=== PATIENT | male | born 1955 | race Caucasian/White ===

== ENCOUNTER 2022-11-19 12:30 | Emergency (ER) | payer OTHER ==
[2022-11-19] MEDS ORDERED: methylPREDNISolone Sod Succ/PF 125 MG/2 ML VIAL ONE (13:05)
[2022-11-19] MEDS ORDERED: Albuterol 200 PUFF INH ONE (13:07)
[2022-11-19 13:29] LABS: Hemoglobin 14.1 g/dL (14.0-18.0); Mean Corpuscular HGB CONC 33.1 g/dL (32.0-36.0); Mean Platelet Volume 8.4 fL (7.4-10.4); Platelet Count 222 10x3/uL (130-400); RBC Distribution Width 11.7 % (11.5-14.5); Red Blood Cell (RBC) Count 4.14 mill/uL (4.70-6.10); White Blood Cell (WBC) Count 15.6 10x3/uL (4.8-10.8)
[2022-11-19 13:42] LABS: Band 9 % (5-11); Lymphocytes 9 % (21-51); MDiff Complete? YES; Macrocytosis SLIGHT = 6-15 cells (100X) (0-5/hpf); Monocytes 6 % (0-10); Neutrophil 73 % (42-75); Platelet Morphology Comment Appears Adequate; Polychromasia SLIGHT = 2-3 cells (100X) (0-2/hpf); Reactive Lymphocytes 2 % (0-10)
[2022-11-19 13:50] LABS: ALT (SGPT) 9 U/L (8-55); AST (SGOT) 9 U/L (5-34); Albumin 3.8 g/dL (3.4-4.8); Alkaline Phosphatase 76 U/L (40-110); Anion Gap 14 mmol/L (10-20); BUN (Urea Nitrogen) 13 mg/dL (8.4-25.7); Bilirubin, Total 0.4 mg/dL (0.2-1.2); Calc. Creatinine Clearance 0 mL/min (70-130); Calcium 9.4 mg/dL (7.8-10.44); Carbon Dioxide 26 mmol/L (23-31); Chloride 104 mmol/L (98-107); Estimated GFR 96; Globulin 3.3 g/dL (2.4-3.5); Glucose 118 mg/dL (80-115); Potassium 3.7 mmol/L (3.5-5.1); Protein, Total 7.1 g/dL (5.8-8.1); Sodium 140 mmol/L (136-145)
[2022-11-19] MEDS ORDERED: cefTRIAXone (ROCEPHIN) 2 GM VIAL ONE (13:59)
[2022-11-19] MEDS ORDERED: Azithromycin 500 MG VIAL ONE (14:24)
[2022-11-19] MEDS ORDERED: Acetaminophen 325 MG TAB ONE (14:50)
== END 2022-11-19 17:00 | disposition home or self-care (01) ==
LOC: ERS 12:30
DX: J44.1 Chronic obstructive pulmonary disease with (acute) exacerbation (principal); D72.829 Elevated white blood cell count, unspecified; I10 Essential (primary) hypertension; Z87.891 Personal history of nicotine dependence; Z79.01 Long term (current) use of anticoagulants
CPT/HCPCS: 36415; 71045; 80053; 83605; 84484; 85025; 87040; 93005; 96365; 96367; 96375; J0456; J0696; J2930

== ENCOUNTER 2022-11-22 11:26 | Emergency (ER) | payer OTHER ==
[2022-11-22 13:04] LABS: Bacteria/HPF None Seen HPF (None Seen); Bilirubin Negative (Negative); Blood, Urine Trace (Negative); Clarity Clear (Clear); Glucose, Urine (Dipstick) Normal (Negative); Ketone, Urine Negative (Negative); Leukocyte Negative Leu/uL (Negative); Nitrite Negative (Negative); Protein, Urine (Dipstick) 20 mg/dL (Neg-Trace); Specific Gravity, Urine 1.036 (1.002-1.036); Squamous Epithelial 0-3 HPF (0-3); Urobilinogen Normal mg/dL (Less than 2); WBC/HPF 0-3 HPF (0-3)
[2022-11-22 13:33] LABS: #Lymphocytes 1.3 thou/uL (1.20-3.40); #Monocytes 0.4 thou/uL (0.11-0.59); #Neutrophils 9.1 thou/uL (1.40-6.50); %Basophils 0.1 % (0.0-1.0); %Eosinophils 0.1 % (0.0-10.0); %Lymphocytes 11.7 % (21.0-51.0); %Neutrophils 84.1 % (42.0-75.0); Hemoglobin 13.9 g/dL (14.0-18.0); Mean Corpuscular HGB CONC 31.7 g/dL (32.0-36.0); Mean Platelet Volume 8.2 fL (7.4-10.4); Platelet Count 274 10x3/uL (130-400); RBC Distribution Width 11.8 % (11.5-14.5); Red Blood Cell (RBC) Count 4.22 mill/uL (4.70-6.10); White Blood Cell (WBC) Count 10.8 10x3/uL (4.8-10.8)
== END 2022-11-22 14:38 | disposition home or self-care (01) ==
LOC: ERS 11:26
DX: R31.9 Hematuria, unspecified (principal); I10 Essential (primary) hypertension; J44.9 Chronic obstructive pulmonary disease, unspecified; I25.10 Atherosclerotic heart disease of native coronary artery without angina pectoris; Z87.891 Personal history of nicotine dependence; Z79.01 Long term (current) use of anticoagulants; Z79.899 Other long term (current) drug therapy
CPT/HCPCS: 36415; 81003; 81015; 85025; 99283

== ENCOUNTER 2022-11-27 03:57 | Inpatient (IN) | payer OTHER ==
[2022-11-27] MEDS ORDERED: Ipratropium/Albuterol 3 ML NEB ONE ×2 (04:16→05:40)
[2022-11-27] MEDS ORDERED: Dexamethasone 10 MG/ML VIAL ONE (04:21)
[2022-11-27] MEDS ORDERED: Magnesium 2 GM/50 ML BAG (IN WATER) ONE (04:22)
[2022-11-27 05:04] LABS: #Eosinphils 0.3 thou/uL (0.0-0.7); #Lymphocytes 2.3 thou/uL (1.20-3.40); #Monocytes 0.8 thou/uL (0.11-0.59); #Neutrophils 12.1 thou/uL (1.40-6.50); %Basophils 0.1 % (0.0-1.0); %Eosinophils 1.7 % (0.0-10.0); %Neutrophils 78.2 % (42.0-75.0); Hemoglobin 12.6 g/dL (14.0-18.0); Mean Corpuscular HGB CONC 33.8 g/dL (32.0-36.0); Mean Corpuscular Hemoglobin 35.1 pg (27.0-31.0); Mean Platelet Volume 7.6 fL (7.4-10.4); Platelet Count 254 10x3/uL (130-400); RBC Distribution Width 12.2 % (11.5-14.5); White Blood Cell (WBC) Count 15.4 10x3/uL (4.8-10.8)
[2022-11-27 05:30] LABS: ALT (SGPT) 19 U/L (8-55); AST (SGOT) 11 U/L (5-34); Albumin 3.2 g/dL (3.4-4.8); Alkaline Phosphatase 56 U/L (40-110); Anion Gap 10 mmol/L (10-20); BUN (Urea Nitrogen) 12 mg/dL (8.4-25.7); Bilirubin, Total 0.3 mg/dL (0.2-1.2); CK (CPK) 34 U/L (30-200); Calc. Creatinine Clearance 0 mL/min (70-130); Calcium 8.1 mg/dL (7.8-10.44); Carbon Dioxide 32 mmol/L (23-31); Chloride 103 mmol/L (98-107); Estimated GFR 98; Globulin 1.8 g/dL (2.4-3.5); Glucose 88 mg/dL (80-115); Lipase 13 U/L (8-78); Potassium 3.8 mmol/L (3.5-5.1); Sodium 141 mmol/L (136-145)
[2022-11-27] MEDS ORDERED: Acetaminophen 650 MG Suppository PR PRN (06:25)
[2022-11-27] MEDS ORDERED: Acetaminophen 325 MG TAB PO PRN (06:25)
[2022-11-27] MEDS ORDERED: Ipratropium Bromide 2.5 ml Neb NEB PRN ×2 (06:25→07:11)
[2022-11-27 07:55] LABS: Bilirubin Negative (Negative); Blood, Urine Negative (Negative); Clarity Clear (Clear); Glucose, Urine (Dipstick) Normal (Negative); Ketone, Urine Negative (Negative); Leukocyte Negative Leu/uL (Negative); Nitrite Negative (Negative); Protein, Urine (Dipstick) Negative (Neg-Trace); Specific Gravity, Urine 1.014 (1.002-1.036); Urobilinogen Normal mg/dL (Less than 2)
[2022-11-27 09:45] VITALS: BMI 29.0
[2022-11-27] MEDS: Ipratropium/Albuterol 3 ML NEB NEB SCH ×5 (10:47→22:26)
[2022-11-27] MEDS: Amiodarone 200 MG TAB PO SCH (20:51)
[2022-11-27] MEDS: Apixaban 5 MG TAB PO SCH (20:51)
[2022-11-27] MEDS: Carvedilol 25 MG TAB PO SCH (20:52)
[2022-11-28] MEDS: Ipratropium/Albuterol 3 ML NEB NEB SCH ×6 (02:16→22:55)
[2022-11-28 07:32] LABS: Hemoglobin 12.9 g/dL (14.0-18.0); Mean Corpuscular HGB CONC 34.4 g/dL (32.0-36.0); Mean Corpuscular Hemoglobin 35.4 pg (27.0-31.0); Platelet Count 248 10x3/uL (130-400); RBC Distribution Width 12.3 % (11.5-14.5); Red Blood Cell (RBC) Count 3.66 mill/uL (4.70-6.10); White Blood Cell (WBC) Count 15.8 10x3/uL (4.8-10.8)
[2022-11-28] MEDS ORDERED: cefTRIAXone\\ROCEPHIN 1 GM in Sodium Chloride 0.9% 100 ML IVPB SCH (08:00)
[2022-11-28] MEDS ORDERED: predniSONE 20 MG TAB PO SCH (08:00)
[2022-11-28] MEDS: Apixaban 5 MG TAB PO SCH ×2 (08:17→20:00)
[2022-11-28] MEDS: Carvedilol 25 MG TAB PO SCH ×2 (08:17→20:10)
[2022-11-28] MEDS: Amiodarone 200 MG TAB PO SCH ×2 (08:17→19:59)
[2022-11-28 12:42] LABS: Band 2 % (5-11); Large Platelets SLIGHT; Lymphocytes 10 % (21-51); MDiff Complete? YES; Monocytes 7 % (0-10); Neutrophil 81 % (42-75); Ovalocytes SLIGHT = 2-5 cells (100X) (0-1/hpf); Platelet Morphology Comment Appears Adequate; Polychromasia SLIGHT = 2-3 cells (100X) (0-2/hpf)
[2022-11-28] MEDS ORDERED: Acetaminophen 650 MG Suppository PR PRN (19:34)
[2022-11-28] MEDS ORDERED: Ipratropium Bromide 2.5 ml Neb NEB PRN (19:35)
[2022-11-28] MEDS: Acetaminophen 325 MG TAB PO PRN (20:04)
[2022-11-29] MEDS: Ipratropium/Albuterol 3 ML NEB NEB SCH ×5 (03:15→18:59)
[2022-11-29 07:42] LABS: Band 3 % (5-11); Eosinophils 2 % (0-10); Hemoglobin 13.4 g/dL (14.0-18.0); Lymphocytes 16 % (21-51); MDiff Complete? YES; Macrocytosis SLIGHT = 6-15 cells (100X) (0-5/hpf); Mean Corpuscular HGB CONC 32.8 g/dL (32.0-36.0); Mean Corpuscular Hemoglobin 33.6 pg (27.0-31.0); Mean Platelet Volume 8.1 fL (7.4-10.4); Monocytes 4 % (0-10); Neutrophil 75 % (42-75); Platelet Count 262 10x3/uL (130-400); Platelet Morphology Comment Appears Adequate; RBC Distribution Width 12.7 % (11.5-14.5); Red Blood Cell (RBC) Count 3.98 mill/uL (4.70-6.10); Stomatocytes SLIGHT = 2-5 cells (100X) (0-1/hpf); White Blood Cell (WBC) Count 16.4 10x3/uL (4.8-10.8)
[2022-11-29] MEDS ORDERED: cefTRIAXone\\ROCEPHIN 1 GM in Sodium Chloride 0.9% 100 ML IVPB SCH (08:00)
[2022-11-29] MEDS: Carvedilol 25 MG TAB PO SCH ×2 (08:42→20:06)
[2022-11-29] MEDS: predniSONE 20 MG TAB PO SCH (08:42)
[2022-11-29] MEDS: Apixaban 5 MG TAB PO SCH ×2 (08:43→20:06)
[2022-11-29] MEDS: Amiodarone 200 MG TAB PO SCH ×2 (08:43→20:06)
[2022-11-29] MEDS: Lisinopril 10 MG TAB PO SCH (08:45)
[2022-11-29] MEDS ORDERED: Ipratropium Bromide 2.5 ml Neb NEB PRN (10:29)
[2022-11-29] MEDS: Acetaminophen 325 MG TAB PO PRN (20:34)
[2022-11-30] MEDS: Ipratropium/Albuterol 3 ML NEB NEB SCH ×4 (01:27→18:22)
[2022-11-30 06:18] LABS: #Eosinphils 0.2 thou/uL (0.0-0.7); #Lymphocytes 3.2 thou/uL (1.20-3.40); #Monocytes 1.1 thou/uL (0.11-0.59); #Neutrophils 10.7 thou/uL (1.40-6.50); %Basophils 0.3 % (0.0-1.0); %Eosinophils 1.1 % (0.0-10.0); %Monocytes 7.5 % (0.0-10.0); %Neutrophils 70.1 % (42.0-75.0); Hemoglobin 13.4 g/dL (14.0-18.0); Mean Corpuscular HGB CONC 31.9 g/dL (32.0-36.0); Mean Corpuscular Hemoglobin 33.2 pg (27.0-31.0); Platelet Count 241 10x3/uL (130-400); RBC Distribution Width 12.6 % (11.5-14.5); Red Blood Cell (RBC) Count 4.05 mill/uL (4.70-6.10); White Blood Cell (WBC) Count 15.2 10x3/uL (4.8-10.8)
[2022-11-30 06:35] LABS: Anion Gap 12 mmol/L (10-20); BUN (Urea Nitrogen) 19 mg/dL (8.4-25.7); Calc. Creatinine Clearance 116 mL/min (70-130); Calcium 8.8 mg/dL (7.8-10.44); Carbon Dioxide 33 mmol/L (23-31); Chloride 98 mmol/L (98-107); Estimated GFR 98; Glucose 101 mg/dL (80-115); Potassium 3.7 mmol/L (3.5-5.1); Sodium 139 mmol/L (136-145)
[2022-11-30] MEDS: predniSONE 20 MG TAB PO SCH (08:15)
[2022-11-30] MEDS: Carvedilol 25 MG TAB PO SCH ×2 (08:15→21:16)
[2022-11-30] MEDS: Lisinopril 10 MG TAB PO SCH (08:15)
[2022-11-30] MEDS: Apixaban 5 MG TAB PO SCH ×2 (08:15→21:16)
[2022-11-30] MEDS: Amiodarone 200 MG TAB PO SCH (08:15)
[2022-11-30] MEDS: Amoxicillin/Potassium Clav 875 MG TAB PO SCH ×2 (08:15→21:16)
[2022-11-30] MEDS ORDERED: Lisinopril 10 MG TAB PO SCH (09:32)
[2022-11-30 09:49] LABS: SARS-CoV-2 NAA Rapid Test Not Detected (NotDetected)
[2022-11-30] MEDS ORDERED: Dextromethorphan 30 MG/5 ML (89 ML BOTTLE) PO PRN (18:39)
[2022-11-30] MEDS: Budesonide 0.5 MG/2 ML NEB NEB SCH (18:40)
[2022-11-30] MEDS ORDERED: Furosemide 20 MG/2 ML VIAL SLOW IVP SCH (18:45)
[2022-11-30] MEDS: Nicotine 21 MG PATCH TD SCH (21:15)
[2022-12-01] MEDS: Ipratropium/Albuterol 3 ML NEB NEB SCH ×6 (00:22→23:00)
[2022-12-01] MEDS: Budesonide 0.5 MG/2 ML NEB NEB SCH ×3 (06:42→18:44)
[2022-12-01 07:10] LABS: #Basophils 0.1 thou/uL (0.0-0.2); #Eosinphils 0.2 thou/uL (0.0-0.7); #Lymphocytes 3.5 thou/uL (1.20-3.40); #Monocytes 1.1 thou/uL (0.11-0.59); #Neutrophils 11.8 thou/uL (1.40-6.50); %Basophils 0.4 % (0.0-1.0); %Eosinophils 1.2 % (0.0-10.0); %Lymphocytes 20.8 % (21.0-51.0); %Monocytes 6.8 % (0.0-10.0); %Neutrophils 70.7 % (42.0-75.0); Hemoglobin 14.5 g/dL (14.0-18.0); Mean Corpuscular HGB CONC 32.6 g/dL (32.0-36.0); Mean Corpuscular Hemoglobin 33.7 pg (27.0-31.0); Mean Platelet Volume 8.1 fL (7.4-10.4); Platelet Count 250 10x3/uL (130-400); RBC Distribution Width 12.8 % (11.5-14.5); Red Blood Cell (RBC) Count 4.29 mill/uL (4.70-6.10); White Blood Cell (WBC) Count 16.7 10x3/uL (4.8-10.8)
[2022-12-01 07:13] LABS: Anion Gap 14 mmol/L (10-20); BUN (Urea Nitrogen) 24 mg/dL (8.4-25.7); Calc. Creatinine Clearance 109 mL/min (70-130); Calcium 8.5 mg/dL (7.8-10.44); Carbon Dioxide 29 mmol/L (23-31); Chloride 98 mmol/L (98-107); Estimated GFR 96; Glucose 98 mg/dL (80-115); Potassium 3.6 mmol/L (3.5-5.1); Sodium 137 mmol/L (136-145)
[2022-12-01] MEDS: Amiodarone 200 MG TAB PO SCH (08:19)
[2022-12-01] MEDS: predniSONE 20 MG TAB PO SCH (08:19)
[2022-12-01] MEDS: Amoxicillin/Potassium Clav 875 MG TAB PO SCH ×2 (08:19→20:50)
[2022-12-01] MEDS: Carvedilol 25 MG TAB PO SCH ×2 (08:19→20:50)
[2022-12-01] MEDS: Lisinopril 20 MG TAB PO SCH (08:20)
[2022-12-01] MEDS: Apixaban 5 MG TAB PO SCH ×2 (08:20→20:50)
[2022-12-01] MEDS: methylPREDNISolone Sod Succ 40 MG VIAL IVP SCH (12:10)
[2022-12-01] MEDS: FLUoxetine HCl 10 MG CAP PO SCH (12:10)
[2022-12-01] MEDS: Nicotine 21 MG PATCH TD SCH (20:21)
[2022-12-01] MEDS ORDERED: hydrOXYzine 25 MG TAB PO SCH (20:45)
[2022-12-02] MEDS: methylPREDNISolone Sod Succ 40 MG VIAL IVP SCH ×2 (00:18→12:50)
[2022-12-02] MEDS: Ipratropium/Albuterol 3 ML NEB NEB SCH ×6 (02:03→21:40)
[2022-12-02 06:09] LABS: #Lymphocytes 1.5 thou/uL (1.20-3.40); #Monocytes 0.6 thou/uL (0.11-0.59); #Neutrophils 12.5 thou/uL (1.40-6.50); %Basophils 0.1 % (0.0-1.0); %Eosinophils 0.3 % (0.0-10.0); %Lymphocytes 10.1 % (21.0-51.0); %Neutrophils 85.4 % (42.0-75.0); Mean Corpuscular HGB CONC 31.5 g/dL (32.0-36.0); Mean Corpuscular Hemoglobin 32.1 pg (27.0-31.0); Mean Platelet Volume 8.1 fL (7.4-10.4); Platelet Count 236 10x3/uL (130-400); RBC Distribution Width 12.8 % (11.5-14.5); Red Blood Cell (RBC) Count 4.34 mill/uL (4.70-6.10); White Blood Cell (WBC) Count 14.7 10x3/uL (4.8-10.8)
[2022-12-02 06:26] LABS: Anion Gap 12 mmol/L (10-20); BUN (Urea Nitrogen) 21 mg/dL (8.4-25.7); Calc. Creatinine Clearance 122 mL/min (70-130); Calcium 8.7 mg/dL (7.8-10.44); Carbon Dioxide 29 mmol/L (23-31); Chloride 99 mmol/L (98-107); Estimated GFR 100; Glucose 108 mg/dL (80-115); Potassium 4.4 mmol/L (3.5-5.1); Sodium 136 mmol/L (136-145)
[2022-12-02] MEDS: Budesonide 0.5 MG/2 ML NEB NEB SCH ×2 (07:04→17:54)
[2022-12-02] MEDS: FLUoxetine HCl 10 MG CAP PO SCH ×2 (09:20→21:03)
[2022-12-02] MEDS: Lisinopril 20 MG TAB PO SCH (09:20)
[2022-12-02] MEDS: Carvedilol 25 MG TAB PO SCH ×2 (09:20→21:03)
[2022-12-02] MEDS: Amiodarone 200 MG TAB PO SCH (09:20)
[2022-12-02] MEDS: Amoxicillin/Potassium Clav 875 MG TAB PO SCH ×2 (09:20→21:03)
[2022-12-02] MEDS: Apixaban 5 MG TAB PO SCH ×2 (09:20→21:03)
[2022-12-02] MEDS: Nicotine 21 MG PATCH TD SCH (21:06)
[2022-12-03] MEDS: methylPREDNISolone Sod Succ 40 MG VIAL IVP SCH (00:37)
[2022-12-03] MEDS: Ipratropium/Albuterol 3 ML NEB NEB SCH ×4 (02:26→19:30)
[2022-12-03] MEDS: Budesonide 0.5 MG/2 ML NEB NEB SCH ×2 (08:06→19:31)
[2022-12-03 08:48] LABS: Band 15 % (5-11); Hemoglobin 14.5 g/dL (14.0-18.0); Lymphocytes 4 % (21-51); MDiff Complete? YES; Macrocytosis SLIGHT = 6-15 cells (100X) (0-5/hpf); Mean Corpuscular HGB CONC 31.6 g/dL (32.0-36.0); Neutrophil 79 % (42-75); Platelet Count 254 10x3/uL (130-400); Platelet Morphology Comment Appears Adequate; RBC Distribution Width 12.9 % (11.5-14.5); Reactive Lymphocytes 2 % (0-10); Red Blood Cell (RBC) Count 4.52 mill/uL (4.70-6.10); White Blood Cell (WBC) Count 14.6 10x3/uL (4.8-10.8)
[2022-12-03 08:51] LABS: Anion Gap 13 mmol/L (10-20); BUN (Urea Nitrogen) 27 mg/dL (8.4-25.7); Calc. Creatinine Clearance 108 mL/min (70-130); Carbon Dioxide 29 mmol/L (23-31); Chloride 99 mmol/L (98-107); Estimated GFR 96; Glucose 139 mg/dL (80-115); Sodium 136 mmol/L (136-145)
[2022-12-03] MEDS: Carvedilol 25 MG TAB PO SCH ×2 (09:16→21:02)
[2022-12-03] MEDS: Lisinopril 20 MG TAB PO SCH (09:16)
[2022-12-03] MEDS: Apixaban 5 MG TAB PO SCH ×2 (09:16→21:02)
[2022-12-03] MEDS: Amiodarone 200 MG TAB PO SCH (09:16)
[2022-12-03] MEDS: predniSONE 20 MG TAB PO SCH (11:41)
[2022-12-03] MEDS: Dextromethorphan 30 MG/5 ML (89 ML BOTTLE) PO SCH ×2 (13:24→18:27)
[2022-12-03] MEDS: Nicotine 21 MG PATCH TD SCH (20:12)
[2022-12-03] MEDS: FLUoxetine HCl 10 MG CAP PO SCH (21:02)
[2022-12-04] MEDS: Dextromethorphan 30 MG/5 ML (89 ML BOTTLE) PO SCH ×4 (00:02→18:42)
[2022-12-04] MEDS: Ipratropium/Albuterol 3 ML NEB NEB SCH ×4 (00:13→18:45)
[2022-12-04 07:15] LABS: #Lymphocytes 1.4 thou/uL (1.20-3.40); #Monocytes 1.2 thou/uL (0.11-0.59); #Neutrophils 12.2 thou/uL (1.40-6.50); %Basophils 0.1 % (0.0-1.0); %Eosinophils 0.2 % (0.0-10.0); %Lymphocytes 9.5 % (21.0-51.0); %Monocytes 7.9 % (0.0-10.0); %Neutrophils 82.2 % (42.0-75.0); Hemoglobin 13.9 g/dL (14.0-18.0); Mean Corpuscular HGB CONC 34.2 g/dL (32.0-36.0); Mean Corpuscular Hemoglobin 35.3 pg (27.0-31.0); Mean Platelet Volume 8.2 fL (7.4-10.4); Platelet Count 206 10x3/uL (130-400); RBC Distribution Width 12.9 % (11.5-14.5); Red Blood Cell (RBC) Count 3.92 mill/uL (4.70-6.10); White Blood Cell (WBC) Count 14.8 10x3/uL (4.8-10.8)
[2022-12-04 07:36] LABS: Anion Gap 12 mmol/L (10-20); BUN (Urea Nitrogen) 30 mg/dL (8.4-25.7); Calc. Creatinine Clearance 109 mL/min (70-130); Calcium 8.9 mg/dL (7.8-10.44); Carbon Dioxide 29 mmol/L (23-31); Chloride 103 mmol/L (98-107); Estimated GFR 96; Glucose 109 mg/dL (80-115); Sodium 139 mmol/L (136-145)
[2022-12-04] MEDS: Budesonide 0.5 MG/2 ML NEB NEB SCH ×2 (07:56→18:46)
[2022-12-04] MEDS: Lisinopril 20 MG TAB PO SCH (09:04)
[2022-12-04] MEDS: Carvedilol 25 MG TAB PO SCH ×2 (09:04→20:27)
[2022-12-04] MEDS: Amiodarone 200 MG TAB PO SCH (09:04)
[2022-12-04] MEDS: predniSONE 20 MG TAB PO SCH (09:04)
[2022-12-04] MEDS: Apixaban 5 MG TAB PO SCH ×2 (09:04→20:27)
[2022-12-04] MEDS: Nicotine 21 MG PATCH TD SCH (19:46)
[2022-12-04] MEDS: FLUoxetine HCl 10 MG CAP PO SCH (20:27)
[2022-12-05] MEDS: Dextromethorphan 30 MG/5 ML (89 ML BOTTLE) PO SCH ×5 (00:35→23:50)
[2022-12-05] MEDS: Ipratropium/Albuterol 3 ML NEB NEB SCH ×4 (00:39→18:36)
[2022-12-05] MEDS: Budesonide 0.5 MG/2 ML NEB NEB SCH ×2 (07:10→18:36)
[2022-12-05 07:28] LABS: #Eosinphils 0.1 thou/uL (0.0-0.7); #Lymphocytes 2.3 thou/uL (1.20-3.40); #Monocytes 1.1 thou/uL (0.11-0.59); #Neutrophils 5.7 thou/uL (1.40-6.50); %Basophils 0.4 % (0.0-1.0); %Eosinophils 0.8 % (0.0-10.0); %Lymphocytes 25.3 % (21.0-51.0); %Monocytes 11.8 % (0.0-10.0); %Neutrophils 61.8 % (42.0-75.0); Hemoglobin 13.1 g/dL (14.0-18.0); Mean Corpuscular HGB CONC 32.9 g/dL (32.0-36.0); Mean Corpuscular Hemoglobin 33.4 pg (27.0-31.0); Mean Platelet Volume 7.8 fL (7.4-10.4); Platelet Count 192 10x3/uL (130-400); RBC Distribution Width 12.6 % (11.5-14.5); Red Blood Cell (RBC) Count 3.93 mill/uL (4.70-6.10); White Blood Cell (WBC) Count 9.3 10x3/uL (4.8-10.8)
[2022-12-05 07:49] LABS: Anion Gap 7 mmol/L (10-20); BUN (Urea Nitrogen) 20 mg/dL (8.4-25.7); Calc. Creatinine Clearance 133 mL/min (70-130); Calcium 8.2 mg/dL (7.8-10.44); Carbon Dioxide 32 mmol/L (23-31); Chloride 101 mmol/L (98-107); Estimated GFR 102; Glucose 78 mg/dL (80-115); Potassium 4.3 mmol/L (3.5-5.1); Sodium 136 mmol/L (136-145)
[2022-12-05] MEDS: Lisinopril 20 MG TAB PO SCH (08:06)
[2022-12-05] MEDS: Amiodarone 200 MG TAB PO SCH (08:06)
[2022-12-05] MEDS: Apixaban 5 MG TAB PO SCH ×2 (08:06→20:21)
[2022-12-05] MEDS: Carvedilol 25 MG TAB PO SCH ×2 (08:06→20:21)
[2022-12-05] MEDS: predniSONE 20 MG TAB PO SCH (08:06)
[2022-12-05] MEDS: FLUoxetine HCl 10 MG CAP PO SCH (20:21)
[2022-12-05] MEDS: Nicotine 21 MG PATCH TD SCH (20:21)
[2022-12-06] MEDS: Ipratropium/Albuterol 3 ML NEB NEB SCH ×5 (01:06→23:12)
[2022-12-06] MEDS: Dextromethorphan 30 MG/5 ML (89 ML BOTTLE) PO SCH ×3 (05:40→17:33)
[2022-12-06 07:17] LABS: #Eosinphils 0.1 thou/uL (0.0-0.7); #Lymphocytes 2.7 thou/uL (1.20-3.40); #Monocytes 0.9 thou/uL (0.11-0.59); #Neutrophils 5.3 thou/uL (1.40-6.50); %Basophils 0.1 % (0.0-1.0); %Eosinophils 1.1 % (0.0-10.0); %Lymphocytes 29.7 % (21.0-51.0); %Monocytes 10.4 % (0.0-10.0); %Neutrophils 58.8 % (42.0-75.0); Mean Corpuscular Hemoglobin 33.3 pg (27.0-31.0); Mean Platelet Volume 8.1 fL (7.4-10.4); Platelet Count 183 10x3/uL (130-400); RBC Distribution Width 12.5 % (11.5-14.5); Red Blood Cell (RBC) Count 3.91 mill/uL (4.70-6.10); White Blood Cell (WBC) Count 9.1 10x3/uL (4.8-10.8)
[2022-12-06 07:41] LABS: Anion Gap 9 mmol/L (10-20); BUN (Urea Nitrogen) 15 mg/dL (8.4-25.7); Calc. Creatinine Clearance 127 mL/min (70-130); Calcium 8.2 mg/dL (7.8-10.44); Carbon Dioxide 33 mmol/L (23-31); Chloride 100 mmol/L (98-107); Estimated GFR 101; Glucose 75 mg/dL (80-115); Potassium 3.9 mmol/L (3.5-5.1); Sodium 138 mmol/L (136-145)
[2022-12-06] MEDS: Apixaban 5 MG TAB PO SCH ×2 (08:24→20:03)
[2022-12-06] MEDS: Carvedilol 25 MG TAB PO SCH ×2 (08:24→20:03)
[2022-12-06] MEDS: Amiodarone 200 MG TAB PO SCH (08:24)
[2022-12-06] MEDS: Lisinopril 20 MG TAB PO SCH (08:24)
[2022-12-06] MEDS: predniSONE 20 MG TAB PO SCH (08:24)
[2022-12-06] MEDS: Budesonide 0.5 MG/2 ML NEB NEB SCH ×2 (08:35→18:34)
[2022-12-06] MEDS: FLUoxetine HCl 10 MG CAP PO SCH (20:03)
[2022-12-06] MEDS: Nicotine 21 MG PATCH TD SCH (20:03)
[2022-12-07] MEDS: Dextromethorphan 30 MG/5 ML (89 ML BOTTLE) PO SCH ×4 (00:10→18:14)
[2022-12-07] MEDS: Budesonide 0.5 MG/2 ML NEB NEB SCH ×2 (06:30→18:28)
[2022-12-07] MEDS: Ipratropium/Albuterol 3 ML NEB NEB SCH ×4 (06:32→23:32)
[2022-12-07 07:31] LABS: #Eosinphils 0.2 thou/uL (0.0-0.7); #Lymphocytes 2.9 thou/uL (1.20-3.40); #Monocytes 0.9 thou/uL (0.11-0.59); #Neutrophils 5.7 thou/uL (1.40-6.50); %Basophils 0.2 % (0.0-1.0); %Eosinophils 1.9 % (0.0-10.0); %Lymphocytes 30.3 % (21.0-51.0); %Monocytes 9.4 % (0.0-10.0); %Neutrophils 58.2 % (42.0-75.0); Mean Corpuscular HGB CONC 32.8 g/dL (32.0-36.0); Mean Corpuscular Hemoglobin 32.6 pg (27.0-31.0); Mean Corpuscular Volume 99.6 fl (78.0-98.0); Platelet Count 182 10x3/uL (130-400); RBC Distribution Width 12.5 % (11.5-14.5); Red Blood Cell (RBC) Count 3.97 mill/uL (4.70-6.10); White Blood Cell (WBC) Count 9.7 10x3/uL (4.8-10.8)
[2022-12-07] MEDS: predniSONE 20 MG TAB PO SCH (08:02)
[2022-12-07] MEDS: Apixaban 5 MG TAB PO SCH ×2 (08:02→20:20)
[2022-12-07] MEDS: Carvedilol 25 MG TAB PO SCH ×2 (08:02→20:20)
[2022-12-07] MEDS: Lisinopril 20 MG TAB PO SCH (08:02)
[2022-12-07] MEDS: Amiodarone 200 MG TAB PO SCH (08:02)
[2022-12-07 08:21] LABS: Anion Gap 10 mmol/L (10-20); BUN (Urea Nitrogen) 16 mg/dL (8.4-25.7); Calc. Creatinine Clearance 133 mL/min (70-130); Calcium 8.4 mg/dL (7.8-10.44); Carbon Dioxide 30 mmol/L (23-31); Chloride 100 mmol/L (98-107); Estimated GFR 102; Glucose 75 mg/dL (80-115); Potassium 3.7 mmol/L (3.5-5.1); Sodium 136 mmol/L (136-145)
[2022-12-07] MEDS: Nicotine 21 MG PATCH TD SCH (20:20)
[2022-12-07] MEDS: FLUoxetine HCl 10 MG CAP PO SCH (20:20)
[2022-12-08] MEDS: Dextromethorphan 30 MG/5 ML (89 ML BOTTLE) PO SCH ×4 (00:13→17:36)
[2022-12-08] MEDS: Budesonide 0.5 MG/2 ML NEB NEB SCH ×2 (07:01→18:21)
[2022-12-08] MEDS: Ipratropium/Albuterol 3 ML NEB NEB SCH ×4 (07:04→23:11)
[2022-12-08] MEDS: Apixaban 5 MG TAB PO SCH ×2 (07:48→21:23)
[2022-12-08] MEDS: Amiodarone 200 MG TAB PO SCH (07:48)
[2022-12-08] MEDS: predniSONE 20 MG TAB PO SCH (07:48)
[2022-12-08] MEDS: Carvedilol 25 MG TAB PO SCH ×2 (07:49→21:23)
[2022-12-08] MEDS: Lisinopril 20 MG TAB PO SCH (07:49)
[2022-12-08] MEDS: FLUoxetine HCl 10 MG CAP PO SCH (21:23)
[2022-12-08] MEDS: Nicotine 21 MG PATCH TD SCH (21:25)
[2022-12-09] MEDS: Dextromethorphan 30 MG/5 ML (89 ML BOTTLE) PO SCH ×4 (00:43→17:42)
[2022-12-09] MEDS: Ipratropium/Albuterol 3 ML NEB NEB SCH ×3 (07:20→18:53)
[2022-12-09] MEDS: Budesonide 0.5 MG/2 ML NEB NEB SCH ×2 (07:21→18:52)
[2022-12-09] MEDS: Carvedilol 25 MG TAB PO SCH ×2 (08:51→20:17)
[2022-12-09] MEDS: Amiodarone 200 MG TAB PO SCH (08:51)
[2022-12-09] MEDS: predniSONE 20 MG TAB PO SCH (08:51)
[2022-12-09] MEDS: Lisinopril 20 MG TAB PO SCH (08:51)
[2022-12-09] MEDS: Apixaban 5 MG TAB PO SCH ×2 (08:51→20:17)
[2022-12-09] MEDS: FLUoxetine HCl 10 MG CAP PO SCH (20:17)
[2022-12-09] MEDS: Nicotine 21 MG PATCH TD SCH (20:18)
[2022-12-10] MEDS: Ipratropium/Albuterol 3 ML NEB NEB SCH ×2 (00:06→07:30)
[2022-12-10] MEDS: Dextromethorphan 30 MG/5 ML (89 ML BOTTLE) PO SCH ×3 (05:54→12:57)
[2022-12-10] MEDS: Budesonide 0.5 MG/2 ML NEB NEB SCH (07:25)
[2022-12-10 07:50] VITALS: TEMP 97.6
[2022-12-10] MEDS: Lisinopril 20 MG TAB PO SCH (08:16)
[2022-12-10] MEDS: Amiodarone 200 MG TAB PO SCH (08:16)
[2022-12-10] MEDS: Carvedilol 25 MG TAB PO SCH (08:16)
[2022-12-10] MEDS: Apixaban 5 MG TAB PO SCH (08:16)
[2022-12-10] MEDS: predniSONE 20 MG TAB PO SCH (08:16)
[2022-12-10 11:43] VITALS: BP 115/69
[2022-12-11] MEDS ORDERED: Lisinopril 10 MG TAB PO SCH (09:00)
== END 2022-12-10 15:06 | disposition home or self-care (01) | DRG 189 ==
LOC: ERS 03:57 → T4-A 05:52 → UNDODISIN 11-28 09:27
PROVIDERS: ADMIT Student in an Organized Health Care Education/Training Program; ATTEND Family Medicine
DX: J96.01 Acute respiratory failure with hypoxia (principal); J44.1 Chronic obstructive pulmonary disease with (acute) exacerbation; Z20.822 Contact with and (suspected) exposure to COVID-19; F41.0 Panic disorder [episodic paroxysmal anxiety]; I10 Essential (primary) hypertension; I48.91 Unspecified atrial fibrillation; I25.10 Atherosclerotic heart disease of native coronary artery without angina pectoris; R94.31 Abnormal electrocardiogram [ECG] [EKG]; Z79.899 Other long term (current) drug therapy; Z79.01 Long term (current) use of anticoagulants; Z79.890 Hormone replacement therapy; Z98.890 Other specified postprocedural states; Z83.6 Family history of other diseases of the respiratory system; Z82.49 Family history of ischemic heart disease and other diseases of the circulatory system; Z82.0 Family history of epilepsy and other diseases of the nervous system; Z87.891 Personal history of nicotine dependence
CPT/HCPCS: 36415; 71045; 80048; 80053; 81003; 82550; 82607; 83605; 83690; 83880; 84145; 84484; 85025; 87040; 93005; 94640; 96374; 96375; J0696; J1100; J1940; J1956; J2920; J3475; J3490; J7512; J7611; J7620; J7626

== ENCOUNTER 2023-07-18 08:49 | Emergency (ER) | payer OTHER ==
[2023-07-18 09:47] LABS: #Basophils 0.1 thou/uL (0.0-0.2); #Eosinphils 0.2 thou/uL (0.0-0.7); #Monocytes 0.7 thou/uL (0.11-0.59); #Neutrophils 3.2 thou/uL (1.40-6.50); %Basophils 0.9 % (0.0-1.0); %Eosinophils 3.3 % (0.0-10.0); %Monocytes 10.4 % (0.0-10.0); %Neutrophils 45.1 % (42.0-75.0); Hemoglobin 15.5 g/dL (14.0-18.0); Mean Platelet Volume 10.3 fL (7.4-10.4); Platelet Count 258 10x3/uL (130-400); RBC Distribution Width 12.2 % (11.5-14.5)
[2023-07-18] MEDS ORDERED: Magnesium 2 GM/50 ML BAG (IN WATER) ONE (10:02)
[2023-07-18] MEDS ORDERED: methylPREDNISolone Sod Succ/PF 125 MG/2 ML VIAL ONE (10:02)
[2023-07-18 10:15] LABS: Troponin I Less than 0.010 ng/mL (< 0.028)
[2023-07-18 10:17] LABS: ALT (SGPT) 44 U/L (8-55); AST (SGOT) 21 U/L (5-34); Albumin 3.9 g/dL (3.4-4.8); Alkaline Phosphatase 86 U/L (40-110); Anion Gap 13 mmol/L (10-20); BUN (Urea Nitrogen) 17 mg/dL (8.4-25.7); Bilirubin, Total 0.4 mg/dL (0.2-1.2); Calc. Creatinine Clearance 0 mL/min (70-130); Calcium 8.9 mg/dL (7.8-10.44); Carbon Dioxide 26 mmol/L (23-31); Chloride 102 mmol/L (98-107); Estimated GFR 74; Globulin 2.8 g/dL (2.4-3.5); Glucose 137 mg/dL (80-115); Potassium 3.7 mmol/L (3.5-5.1); Protein, Total 6.7 g/dL (5.8-8.1); Sodium 137 mmol/L (136-145)
[2023-07-18] MEDS ORDERED: Ipratropium/Albuterol 3 ML NEB ONE (10:42)
[2023-07-18 12:31] LABS: SARS-CoV-2 NAA Rapid Test Not Detected (NotDetected)
== END 2023-07-18 11:34 | disposition home or self-care (01) ==
LOC: ERS 08:49
DX: J44.1 Chronic obstructive pulmonary disease with (acute) exacerbation (principal); I48.91 Unspecified atrial fibrillation; I10 Essential (primary) hypertension; Z20.822 Contact with and (suspected) exposure to COVID-19; Z87.891 Personal history of nicotine dependence; Z79.899 Other long term (current) drug therapy; Z79.01 Long term (current) use of anticoagulants
CPT/HCPCS: 71045; 80053; 83880; 84484; 85025; 93005; 96365; 96375; J2930; J3475; J7620

== ENCOUNTER 2023-08-01 13:52 | Inpatient (IN) | payer OTHER ==
[~2023-08-01 13:52] MED LIST: Iopamidol-370 76% 500 ML MDV (1 ML CHARGE) ONE
[2023-08-01 14:48] LABS: Actual Bicarbonate (HCO3a) 27.3 mEq/L (22-28); Analyzer IN Cardio ER; Base Excess (BEa) 1.5 mEq/L (-2.0 to +3.0); CO2 Tension 47.5 mmHg (35.0-45.0); Calcium, Ionized (arterial) 1.16 mmol/L (1.12-1.30); Carboxyhemoglobin (COHb) 2.8 gm% (0.0-3.0); Hematocrit-ABG 42 % (42.0-52.0); Hemoglobin (Hb) 14.2 g/dL (14.0-18.0); Potassium - ABG Lab 3.72 mmol/L (3.70-5.30); pH, Arterial 7.377 (7.35-7.45)
[2023-08-01] MEDS ORDERED: Ipratropium/Albuterol 3 ML NEB ONE (14:51)
[2023-08-01] MEDS ORDERED: Dexamethasone 10 MG/ML VIAL ONE (14:51)
[2023-08-01] MEDS ORDERED: Albuterol 2.5 MG/0.5 ML NEB ONE (14:53)
[2023-08-01 15:05] LABS: Puncture Site RBA
[2023-08-01 15:11] LABS: #Basophils 0.1 thou/uL (0.0-0.2); #Eosinphils 0.2 thou/uL (0.0-0.7); #Monocytes 0.8 thou/uL (0.11-0.59); #Neutrophils 6.7 thou/uL (1.40-6.50); %Basophils 0.5 % (0.0-1.0); %Eosinophils 2.3 % (0.0-10.0); %Lymphocytes 24.8 % (21.0-51.0); %Monocytes 7.4 % (0.0-10.0); %Neutrophils 64.4 % (42.0-75.0); Hematocrit 43.3 % (42.0-52.0); Hemoglobin 13.9 g/dL (14.0-18.0); Mean Corpuscular HGB CONC 32.1 g/dL (32.0-36.0); Mean Corpuscular Hemoglobin 32.5 pg (27.0-31.0); Mean Corpuscular Volume 101.2 fl (78.0-98.0); Mean Platelet Volume 11.2 fL (7.4-10.4); Platelet Count 153 10x3/uL (130-400); RBC Distribution Width 12.9 % (11.5-14.5); Red Blood Cell (RBC) Count 4.28 mill/uL (4.70-6.10); White Blood Cell (WBC) Count 10.4 10x3/uL (4.8-10.8)
[2023-08-01 15:33] LABS: ALT (SGPT) 73 U/L (8-55); AST (SGOT) 25 U/L (5-34); Albumin 3.6 g/dL (3.4-4.8); Alkaline Phosphatase 72 U/L (40-110); Anion Gap 7 mmol/L (10-20); BUN (Urea Nitrogen) 12 mg/dL (8.4-25.7); Bilirubin, Total 0.3 mg/dL (0.2-1.2); Calc. Creatinine Clearance 0 mL/min (70-130); Calcium 8.6 mg/dL (7.8-10.44); Carbon Dioxide 32 mmol/L (23-31); Chloride 103 mmol/L (98-107); Estimated GFR 91; Globulin 2.9 g/dL (2.4-3.5); Glucose 101 mg/dL (80-115); Lipase 9 U/L (8-78); Potassium 4.1 mmol/L (3.5-5.1); Protein, Total 6.5 g/dL (5.8-8.1); Sodium 138 mmol/L (136-145)
[2023-08-01] MEDS ORDERED: LevoFLOXacin 750 mg/D5W 150 ml Premix Bag ONE (15:35)
[2023-08-01] MEDS ORDERED: Magnesium 2 GM/50 ML BAG (IN WATER) ONE (15:35)
[2023-08-01 15:38] LABS: Troponin I Less than 0.010 ng/mL (< 0.028)
[2023-08-01] MEDS ORDERED: Ondansetron ODT 4 MG TAB PO PRN (16:51)
[2023-08-01] MEDS ORDERED: Ipratropium/Albuterol 3 ML NEB NEB PRN (16:51)
[2023-08-01 17:42] VITALS: BMI 28.0
[2023-08-01] MEDS ORDERED: FLU VACC QS2023(65UP)/MF59C/PF 60 MCG/0.5 ML SYRINGE IM ONE (18:00)
[2023-08-01 18:02] LABS: Hemoglobin A1c 6.3 % (4.0-6.0)
[2023-08-01 18:21] LABS: SARS-CoV-2 NAA Rapid Test Not Detected (NotDetected)
[2023-08-01] MEDS: Mometasone/Formoterol 200/5 60 PUFF INH SCH (18:45)
[2023-08-01] MEDS: Atorvastatin Calcium 10 MG TAB PO SCH (20:23)
[2023-08-01] MEDS: Apixaban 5 MG TAB PO SCH (20:23)
[2023-08-01] MEDS ORDERED: Famotidine 20 MG TAB PO SCH (21:00)
[2023-08-01] MEDS ORDERED: Cefepime 2 GM in Sodium Chloride 0.9% 100 ML IVPB SCH (21:00)
[2023-08-01] MEDS ORDERED: FLUoxetine HCl 10 MG CAP PO SCH (21:45)
[2023-08-02] MEDS: Acetaminophen 325 MG TAB PO PRN ×2 (04:37→11:40)
[2023-08-02 06:05] LABS: #Monocytes 0.1 thou/uL (0.11-0.59); #Neutrophils 4.4 thou/uL (1.40-6.50); %Basophils 0.2 % (0.0-1.0); %Lymphocytes 18.3 % (21.0-51.0); %Monocytes 1.6 % (0.0-10.0); %Neutrophils 79.4 % (42.0-75.0); Hematocrit 40.5 % (42.0-52.0); Hemoglobin 12.9 g/dL (14.0-18.0); Mean Corpuscular HGB CONC 31.9 g/dL (32.0-36.0); Mean Corpuscular Hemoglobin 32.2 pg (27.0-31.0); Mean Platelet Volume 10.9 fL (7.4-10.4); Platelet Count 153 10x3/uL (130-400); RBC Distribution Width 12.7 % (11.5-14.5); Red Blood Cell (RBC) Count 4.01 mill/uL (4.70-6.10); White Blood Cell (WBC) Count 5.5 10x3/uL (4.8-10.8)
[2023-08-02 06:34] LABS: Anion Gap 12 mmol/L (10-20); BUN (Urea Nitrogen) 10 mg/dL (8.4-25.7); Calc. Creatinine Clearance 118 mL/min (70-130); Calcium 8.6 mg/dL (7.8-10.44); Carbon Dioxide 25 mmol/L (23-31); Chloride 106 mmol/L (98-107); Estimated GFR 100; Glucose 140 mg/dL (80-115); Magnesium 2.2 mg/dL (1.6-2.6); Potassium 4.2 mmol/L (3.5-5.1); Sodium 139 mmol/L (136-145)
[2023-08-02] MEDS: Mometasone/Formoterol 200/5 60 PUFF INH SCH ×2 (07:31→19:31)
[2023-08-02] MEDS ORDERED: UBIDECARENONE 30 MG PO SCH (09:00)
[2023-08-02] MEDS: Carvedilol 25 MG TAB PO SCH ×2 (09:28→21:00)
[2023-08-02] MEDS: Amiodarone 200 MG TAB PO SCH ×2 (09:29→21:00)
[2023-08-02] MEDS: DULoxetine 30 MG CAP PO SCH (09:29)
[2023-08-02] MEDS: Cholecalciferol 1,000 UNITS (25 MCG) TAB PO SCH (09:29)
[2023-08-02] MEDS: Lisinopril 10 MG TAB PO SCH (09:29)
[2023-08-02] MEDS: predniSONE 20 MG TAB PO SCH (09:29)
[2023-08-02] MEDS: Clopidogrel Bisulfate 75 MG TAB PO SCH (09:29)
[2023-08-02] MEDS: Apixaban 5 MG TAB PO SCH ×2 (09:29→21:00)
[2023-08-02] MEDS: Hydrochlorothiazide 25 MG TAB PO SCH (09:29)
[2023-08-02] MEDS: Oseltamivir 75 MG CAP PO SCH ×2 (09:29→21:01)
[2023-08-02] MEDS: Ipratropium Bromide 2.5 ml Neb NEB SCH ×2 (12:03→19:20)
[2023-08-02] MEDS: LevoFLOXacin 750 mg/D5W 750 MG in Premix 1 BAG IVPB SCH (15:10)
[2023-08-02] MEDS ORDERED: Aspirin/APAP/Caffeine Tab (Excedrin Migraine) PO PRN (15:33)
[2023-08-02] MEDS ORDERED: Loratadine 10 MG TAB PO PRN (15:34)
[2023-08-02] MEDS: Mometasone 200 MCG/Formoterol 5 MCG 120 PUFF INHALER INH SCH (19:17)
[2023-08-02] MEDS: Budesonide 0.5 MG/2 ML NEB NEB SCH (19:22)
[2023-08-02] MEDS: Arformoterol 15 MCG/2 ML NEB NEB SCH (19:22)
[2023-08-02] MEDS ORDERED: Albuterol 200 PUFF (6.7GM INHALER) INH PRN (20:52)
[2023-08-02] MEDS: Gabapentin 300 MG CAP PO SCH (21:00)
[2023-08-02] MEDS: Atorvastatin Calcium 10 MG TAB PO SCH (21:00)
[2023-08-02] MEDS: FLUoxetine HCl 10 MG CAP PO SCH (21:01)
[2023-08-02] MEDS: Terazosin HCl 1 MG CAP PO SCH (21:08)
[2023-08-03] MEDS: Ipratropium Bromide 2.5 ml Neb NEB SCH ×4 (01:24→18:41)
[2023-08-03] MEDS: Mometasone/Formoterol 200/5 60 PUFF INH SCH ×2 (08:42→22:49)
[2023-08-03] MEDS: Arformoterol 15 MCG/2 ML NEB NEB SCH ×2 (08:43→18:43)
[2023-08-03] MEDS: Budesonide 0.5 MG/2 ML NEB NEB SCH ×2 (08:47→18:43)
[2023-08-03] MEDS: Mometasone 200 MCG/Formoterol 5 MCG 120 PUFF INHALER INH SCH ×2 (08:48→18:44)
[2023-08-03] MEDS: Amiodarone 200 MG TAB PO SCH ×2 (08:57→20:14)
[2023-08-03] MEDS: Apixaban 5 MG TAB PO SCH ×2 (08:57→20:14)
[2023-08-03] MEDS: Cholecalciferol 1,000 UNITS (25 MCG) TAB PO SCH (08:57)
[2023-08-03] MEDS: Hydrochlorothiazide 25 MG TAB PO SCH (08:58)
[2023-08-03] MEDS: Lisinopril 10 MG TAB PO SCH (08:58)
[2023-08-03] MEDS: DULoxetine 30 MG CAP PO SCH (08:58)
[2023-08-03] MEDS: Clopidogrel Bisulfate 75 MG TAB PO SCH (08:58)
[2023-08-03] MEDS: Oseltamivir 75 MG CAP PO SCH ×2 (08:58→20:14)
[2023-08-03] MEDS: predniSONE 20 MG TAB PO SCH (08:58)
[2023-08-03] MEDS: Carvedilol 25 MG TAB PO SCH (08:59)
[2023-08-03] MEDS: LevoFLOXacin 750 mg/D5W 750 MG in Premix 1 BAG IVPB SCH (16:11)
[2023-08-03] MEDS: Terazosin HCl 1 MG CAP PO SCH (20:13)
[2023-08-03] MEDS: Gabapentin 300 MG CAP PO SCH (20:14)
[2023-08-03] MEDS: Atorvastatin Calcium 10 MG TAB PO SCH (20:14)
[2023-08-03] MEDS: FLUoxetine HCl 10 MG CAP PO SCH (20:14)
[2023-08-03] MEDS: Acetaminophen 325 MG TAB PO PRN (20:15)
[2023-08-03] MEDS: methylPREDNISolone Sod Succ 40 MG VIAL IVP SCH (23:55)
[2023-08-04] MEDS: Ipratropium Bromide 2.5 ml Neb NEB SCH ×5 (01:57→23:35)
[2023-08-04] MEDS: methylPREDNISolone Sod Succ 40 MG VIAL IVP SCH ×3 (05:18→18:17)
[2023-08-04] MEDS ORDERED: Carvedilol 6.25 MG TAB PO SCH (08:00)
[2023-08-04] MEDS: Arformoterol 15 MCG/2 ML NEB NEB SCH ×2 (08:16→19:01)
[2023-08-04] MEDS: Budesonide 0.5 MG/2 ML NEB NEB SCH ×2 (08:40→19:02)
[2023-08-04] MEDS: Lisinopril 10 MG TAB PO SCH (09:00)
[2023-08-04] MEDS: Oseltamivir 75 MG CAP PO SCH ×2 (09:01→20:37)
[2023-08-04] MEDS: Carvedilol 6.25 MG TAB PO SCH ×2 (09:01→20:37)
[2023-08-04] MEDS: Cholecalciferol 1,000 UNITS (25 MCG) TAB PO SCH (09:01)
[2023-08-04] MEDS: Apixaban 5 MG TAB PO SCH ×2 (09:01→20:36)
[2023-08-04] MEDS: Clopidogrel Bisulfate 75 MG TAB PO SCH (09:01)
[2023-08-04] MEDS: Hydrochlorothiazide 25 MG TAB PO SCH (09:01)
[2023-08-04] MEDS: DULoxetine 30 MG CAP PO SCH (09:01)
[2023-08-04] MEDS: Amiodarone 200 MG TAB PO SCH ×2 (09:01→20:37)
[2023-08-04] MEDS: Mometasone/Formoterol 200/5 60 PUFF INH SCH ×2 (16:04→19:04)
[2023-08-04] MEDS: Mometasone 200 MCG/Formoterol 5 MCG 120 PUFF INHALER INH SCH ×2 (16:05→19:01)
[2023-08-04] MEDS: LevoFLOXacin 750 mg/D5W 750 MG in Premix 1 BAG IVPB SCH (16:08)
[2023-08-04] MEDS: Terazosin HCl 1 MG CAP PO SCH (20:36)
[2023-08-04] MEDS: Atorvastatin Calcium 10 MG TAB PO SCH (20:36)
[2023-08-04] MEDS: Gabapentin 300 MG CAP PO SCH (20:37)
[2023-08-04] MEDS: FLUoxetine HCl 10 MG CAP PO SCH (20:38)
[2023-08-04 20:43] VITALS: TEMP 97.7
[2023-08-05] MEDS: methylPREDNISolone Sod Succ 40 MG VIAL IVP SCH ×3 (00:26→12:37)
[2023-08-05] MEDS: Arformoterol 15 MCG/2 ML NEB NEB SCH (08:17)
[2023-08-05] MEDS: Budesonide 0.5 MG/2 ML NEB NEB SCH (08:17)
[2023-08-05] MEDS: Ipratropium Bromide 2.5 ml Neb NEB SCH (08:36)
[2023-08-05] MEDS: Mometasone/Formoterol 200/5 60 PUFF INH SCH (08:37)
[2023-08-05] MEDS: Mometasone 200 MCG/Formoterol 5 MCG 120 PUFF INHALER INH SCH (08:40)
[2023-08-05] MEDS: Carvedilol 6.25 MG TAB PO SCH (08:41)
[2023-08-05] MEDS: Hydrochlorothiazide 25 MG TAB PO SCH (08:41)
[2023-08-05] MEDS: Amiodarone 200 MG TAB PO SCH (08:42)
[2023-08-05] MEDS: DULoxetine 30 MG CAP PO SCH (08:42)
[2023-08-05] MEDS: Lisinopril 10 MG TAB PO SCH (08:42)
[2023-08-05] MEDS: Oseltamivir 75 MG CAP PO SCH (08:42)
[2023-08-05] MEDS: Cholecalciferol 1,000 UNITS (25 MCG) TAB PO SCH (08:42)
[2023-08-05] MEDS: Clopidogrel Bisulfate 75 MG TAB PO SCH (08:42)
[2023-08-05] MEDS: Apixaban 5 MG TAB PO SCH (08:42)
[2023-08-05] MEDS: Acetaminophen 325 MG TAB PO PRN (12:35)
[2023-08-05 12:39] VITALS: BP 122/66
== END 2023-08-05 14:01 | disposition home or self-care (01) | DRG 193 ==
LOC: ERS 13:52 → T4-B 16:18
PROVIDERS: ADMIT Hospitalist; ATTEND Internal Medicine
PROC: 3E03329 Introduction of Other Anti-infective into Peripheral Vein, Percutaneous Approach (ICD-10-PCS; principal; 2023-08-01)
PROC: 4A033R1 Measurement of Arterial Saturation, Peripheral, Percutaneous Approach (ICD-10-PCS; 2023-08-01)
DX: J10.1 Influenza due to other identified influenza virus with other respiratory manifestations (principal); J96.00 Acute respiratory failure, unspecified whether with hypoxia or hypercapnia; J44.1 Chronic obstructive pulmonary disease with (acute) exacerbation; J18.9 Pneumonia, unspecified organism; I10 Essential (primary) hypertension; J43.9 Emphysema, unspecified; I25.10 Atherosclerotic heart disease of native coronary artery without angina pectoris; F17.210 Nicotine dependence, cigarettes, uncomplicated; I48.0 Paroxysmal atrial fibrillation; E78.5 Hyperlipidemia, unspecified; E11.9 Type 2 diabetes mellitus without complications; Z79.899 Other long term (current) drug therapy; Z82.49 Family history of ischemic heart disease and other diseases of the circulatory system
CPT/HCPCS: 36415; 36600; 71045; 71275; 80048; 80053; 82805; 83036; 83605; 83690; 83735; 83880; 84484; 85025; 87040; 87070; 87205; 93005; 94640; 94644; J1100; J1956; J2920; J3475; J7512; J7611; J7620; J7626; Q9967

== ENCOUNTER 2024-02-07 14:05 | Emergency (ER) | payer OTHER ==
[2024-02-07 15:52] LABS: #Basophils 0.09 10x3/uL (0.0-0.2); %Eosinophils 3.3 % (0.0-10.0); %Lymphocytes 26.1 % (21.0-51.0); %Monocytes 10.1 % (0.0-10.0); %Neutrophils 59.1 % (42.0-75.0); Hematocrit 40.3 % (42.0-52.0); Hemoglobin 13.5 g/dL (14.0-18.0); Mean Corpuscular HGB CONC 33.5 g/dL (32.0-36.0); Mean Corpuscular Hemoglobin 33.1 pg (27.0-31.0); Mean Corpuscular Volume 98.8 fL (78.0-98.0); Mean Platelet Volume 9.9 fL (7.4-10.4); Platelet Count 223 10x3/uL (130-400); RBC Distribution Width 12.4 % (11.5-14.5); Red Blood Cell (RBC) Count 4.08 mill/uL (4.70-6.10)
[2024-02-07 16:08] LABS: ALT (SGPT) 19 U/L (8-55); AST (SGOT) 17 U/L (5-34); Albumin 3.7 g/dL (3.4-4.8); Alkaline Phosphatase 81 U/L (40-110); Anion Gap 13 mmol/L (10-20); BUN (Urea Nitrogen) 11 mg/dL (8.4-25.7); Bilirubin, Total 0.3 mg/dL (0.2-1.2); CRP,High Sensitivity (Inhouse) 0.95 mg/dL (< or = 0.5); Calc. Creatinine Clearance 0 mL/min (70-130); Calcium 9.7 mg/dL (7.8-10.44); Carbon Dioxide 26 mmol/L (23-31); Chloride 103 mmol/L (98-107); Estimated GFR 95; Glucose 87 mg/dL (80-115); Potassium 4.3 mmol/L (3.5-5.1); Protein, Total 6.7 g/dL (5.8-8.1); Sodium 138 mmol/L (136-145)
[2024-02-07] MEDS ORDERED: Metoclopramide HCl 10 MG (2 mL) VIAL ONE (16:44)
[2024-02-07] MEDS ORDERED: Ketorolac Tromethamine 30 MG (1 mL) VIAL ONE (16:44)
[2024-02-07] MEDS ORDERED: diphenhydrAMINE 50 MG/ML VIAL ONE (16:44)
== END 2024-02-07 18:21 | disposition home or self-care (01) ==
LOC: ERS 14:05
DX: G44.209 Tension-type headache, unspecified, not intractable (principal); I10 Essential (primary) hypertension; J44.9 Chronic obstructive pulmonary disease, unspecified; Z87.891 Personal history of nicotine dependence
CPT/HCPCS: 36415; 70450; 80053; 85025; 86141; 96374; 96375; J1200; J1885; J2765